=== PATIENT | male | born 1960 | race Caucasian/White ===

== ENCOUNTER 2017-05-13 12:16 | Emergency (ER) | payer SELFPAY ==
[~2017-05-13] VITALS: Ht 165.1 cm; Wt 76.0 kg
[2017-05-13 12:19] VITALS: BP 148/84
== END 2017-05-13 19:25 | disposition left against medical advice (07) ==
LOC: ER 12:16
DX: Z53.21 Procedure and treatment not carried out due to patient leaving prior to being seen by health care provider (principal)

== ENCOUNTER 2017-05-14 03:32 | Emergency (ER) | payer SELFPAY ==
[~2017-05-14] VITALS: Ht 160 cm; Wt 59.0 kg
[2017-05-14] MEDS ORDERED: ACETAMINOPHEN 325MG TABLET PO ONE (09:15)
[2017-05-14 10:08] VITALS: BP 124/81
== END 2017-05-14 10:12 | disposition home or self-care (01) ==
LOC: ER 03:32
DX: M54.5 Low back pain (principal); F10.20 Alcohol dependence, uncomplicated
CPT/HCPCS: 99283; Z7610